=== PATIENT | male | born 1965 | race Caucasian/White ===

== ENCOUNTER 2017-02-07 14:32 | Observation (INO) | payer OTHER ==
[2017-02-07] VITALS (15 sets, daily range): BP systolic 139–200; BP diastolic 71–92; PULSE 78–107; RESP 18–20; TEMP 97.8–99; O2SAT 96–100
[~2017-02-07 14:32] MED LIST: NIFE30TA2 PO
[2017-02-07] MEDS ORDERED: ALPR.5 PO (15:08)
[2017-02-07] MEDS ORDERED: HYDR25TA5 PO (15:08)
[2017-02-07] MEDS ORDERED: ASPI325T PO (15:08)
[2017-02-07] MEDS ORDERED: NIFE30TA61 PO (15:08)
[2017-02-07] MEDS ORDERED: SODIUM CHLOR 0.9% 1000 ML INJ 1,000 ML IV ONE (15:15)
[2017-02-07] MEDS ORDERED: SODIUM CHLORIDE 0.9% FLUSH 10 ML FLUSH IVF PRN (15:15)
[2017-02-07 15:30] LABS: AUTOMATED NEUTROPHIL # 4.7 TH/MM3 (1.8-7.7); BASOPHIL # 0.1 TH/MM3 (0-0.2); BASOPHIL % 1.2 % (0.0-2.0); EOSINOPHIL # 0.2 TH/MM3 (0-0.4); EOSINOPHIL % 2.2 % (0.0-4.0); HEMATOCRIT 41.8 % (39.0-51.0); LYMPHOCYTE # 1.3 TH/MM3 (1.0-4.8); MEAN CELL VOLUME 94.5 FL (80.0-100.0); MEAN CORPUSCULAR HGB CONC 34.9 % (32.0-36.0); MONO % 8.4 % (0.0-8.0); NEUT % 69.2 % (16.0-70.0); PLATELET COUNT 93 TH/MM3 (150-450); RED BLOOD COUNT 4.43 MIL/MM3 (4.50-5.90); RED CELL DISTRIBUTION WIDTH 12.4 % (11.6-17.2); WHITE BLOOD COUNT 6.9 TH/MM3 (4.0-11.0)
--- NOTE | 2017-02-07 15:32 | PD ---
HPI Chief Complaint: Chest Pain Time Seen by Provider: 14:56 Travel History International Travel<30 days: No Contact w/Intl Traveler<30days: No Traveled to known affect area: No History of Present Illness HPI Patient is a 51 year old male with history of diabetes, hypertension, anxiety, alcohol abuse, cocaine abuse who presents to the ER with multiple complaints. Patient reports that starting yesterday, he was not feeling well. Reports that he was feeling tired, shaky, reports that he was feeling nauseous and had an episode of emesis yesterday. Patient reports that he began to have left sided chest pain which rate and his left arm yesterday while at work which is intermittent in nature. Patient reports that the chest pain feels a "tightness " to his chest. Denies history of [place], ACS in the past. Patient does admit to using cocaine a few days ago, reports that he snorted this and uses this intermittently. Patient also reports that he drinks about 5-6 shots of alcohol per day, he did have a few shots prior to coming to the emergency room as he was feeling anxious. Patient reports overall discomfort. Reports that he is scheduled to see Dr. Dunlap is a local flatbed driver on February 13 for his first visit as his PCP Dr. Murray told him that he had an abnormal cardiac echo. medication list: Nifedipine 30 mg, aspirin 325 mg, Xanax 0.5 mg, HCTZ 25 mg PFSH Past Medical History Cancer: No Cardiovascular Problems: No Diabetes: Yes Endocrine: No GERD: Yes Genitourinary: No Hepatitis: No Hiatal Hernia: No Hypertension: Yes Immune Disorder: No Medical other: Yes ("leaky valve") Musculoskeletal: No Neurologic: No Psychiatric: No Reproductive: No Respiratory: No Immunizations Current: No Thyroid Disease: No Influenza Vaccination: No Past Surgical History AICD: Yes Joint Replacement: No Pacemaker: No Tonsillectomy: Yes Family History Family Myocardial Infarction: No Social History Alcohol Use: Yes (2-6 DAily) Tobacco Use: Yes (2PPD) Substance Use: No Allergies-Medications (Allergen,Severity, Reaction): Coded Allergies: No Known Allergies (Verified , 02/07/17) Reported Meds & Prescriptions Reported Meds & Active Scripts Active Reported Aspirin 325 Mg Tab 325 Mg PO DAILY Hydrochlorothiazide 25 Mg Tab 25 Mg PO DAILY Xanax (Alprazolam) 0.5 Mg Tab 0.5 Mg PO HS PRN Nifedipine ER 24 HR (Nifedipine) 30 Mg Tab 30 Mg PO HS Review of Systems General / Constitutional: No: Fever Eyes: No: Visual changes HENT: No: Headaches Cardiovascular: Positive: Chest Pain or Discomfort, Palpitations Respiratory: No: Shortness of Breath Gastrointestinal: Positive: Nausea, Vomiting, Abdominal Pain Genitourinary: No: Dysuria Musculoskeletal: No: Pain Skin: No Rash Neurologic: No: Weakness Psychiatric: No: Depression Endocrine: No: Polydipsia Hematologic/Lymphatic: No: Easy Bruising Physical Exam Narrative GENERAL: Mild distress SKIN: Focused skin assessment warm/dry. HEAD: Atraumatic. Normocephalic. EYES: Pupils equal and round. No scleral icterus. No injection or drainage. ENT: No nasal bleeding or discharge. Mucous membranes pink and moist. NECK: Trachea midline. No JVD. CARDIOVASCULAR: Regular rate and rhythm. No murmur appreciated. RESPIRATORY: No accessory muscle use. Clear to auscultation. Breath sounds equal bilaterally. GASTROINTESTINAL: Abdomen soft, non-tender, nondistended. Hepatic and splenic margins not palpable. MUSCULOSKELETAL: No obvious deformities. No clubbing. No cyanosis. No edema. NEUROLOGICAL: Awake and alert. No obvious cranial nerve deficits. Motor grossly within normal limits. Normal speech. PSYCHIATRIC: Appropriate mood and affect; insight and judgment normal. Data Data Last Documented VS Vital Signs Date Time Temp Pulse Resp B/P (MAP) Pulse Ox O2 Delivery O2 Flow Rate FiO2 02/07/17 15:45 89 20 190/84 (119) 97 Room Air 02/07/17 14:37 99.0 Orders Orders Electrocardiogram (02/07/17 ) B-Type Natriuretic Peptide (02/07/17 15:08) Ckmb (Isoenzyme) Profile (02/07/17 15:08) Complete Blood Count With Diff (02/07/17 15:08) Comprehensive Metabolic Panel (02/07/17 15:08) Magnesium (Mg) (02/07/17 15:08) Prothrombin Time / Inr (Pt) (02/07/17 15:08) Act Partial Throm Time (Ptt) (02/07/17 15:08) Troponin I (02/07/17 15:08) Lipase (02/07/17 15:08) Chest, Single Ap (02/07/17 15:08) Ecg Monitoring (02/07/17 15:08) Iv Access Insert/Monitor (02/07/17 15:08) Oximetry (02/07/17 15:08) Sodium Chloride 0.9% Flush (Ns Flush) (02/07/17 15:15) Drug Screen, Random Urine (02/07/17 15:08) Alcohol (Ethanol) (02/07/17 15:08) Sodium Chlor 0.9% 1000 Ml Inj (Ns 1000 M (02/07/17 15:15) Electrocardiogram (02/07/17 15:39) Hydralazine Inj (Apresoline Inj) (02/07/17 16:00) CKMB (02/07/17 15:20) CKMB% (02/07/17 15:20) Potassium Chlor 20 Meq Premix (Kcl 20 Me (02/07/17 16:15) Nitroglycerin Sl (Nitrostat Sl) (02/07/17 17:00) Consult Cardiology (02/07/17 ) Labs Laboratory Tests Test 02/07/17 15:20 02/07/17 16:30 White Blood Count 6.9 TH/MM3 Red Blood Count 4.43 MIL/MM3 Hemoglobin 14.6 GM/DL Hematocrit 41.8 % Mean Corpuscular Volume 94.5 FL Mean Corpuscular Hemoglobin 33.0 PG Mean Corpuscular Hemoglobin Concent 34.9 % Red Cell Distribution Width 12.4 % Platelet Count 93 TH/MM3 Mean Platelet Volume 8.5 FL Neutrophils (%) (Auto) 69.2 % Lymphocytes (%) (Auto) 19.0 % Monocytes (%) (Auto) 8.4 % Eosinophils (%) (Auto) 2.2 % Basophils (%) (Auto) 1.2 % Neutrophils # (Auto) 4.7 TH/MM3 Lymphocytes # (Auto) 1.3 TH/MM3 Monocytes # (Auto) 0.6 TH/MM3 Eosinophils # (Auto) 0.2 TH/MM3 Basophils # (Auto) 0.1 TH/MM3 CBC Comment AUTO DIFF Prothrombin Time 15.2 SEC Prothromb Time International Ratio 1.4 RATIO Activated Partial Thromboplast Time 32.0 SEC Blood Urea Nitrogen 5 MG/DL Creatinine 0.72 MG/DL Random Glucose 95 MG/DL Total Protein 9.3 GM/DL Albumin 3.8 GM/DL Calcium Level 9.1 MG/DL Magnesium Level 2.1 MG/DL Alkaline Phosphatase 99 U/L Aspartate Amino Transf (AST/SGOT) 140 U/L Alanine Aminotransferase (ALT/SGPT) 55 U/L Total Bilirubin 1.3 MG/DL Sodium Level 136 MEQ/L Potassium Level 3.0 MEQ/L Chloride Level 97 MEQ/L Carbon Dioxide Level 28.5 MEQ/L Anion Gap 11 MEQ/L Estimat Glomerular Filtration Rate 116 ML/MIN Total Creatine Kinase 213 U/L Creatine Kinase MB 3.2 NG/ML Troponin I 0.04 NG/ML B-Type Natriuretic Peptide 116 PG/ML Lipase 166 U/L Ethyl Alcohol Level 20 MG/DL [facility] [place] Medical Decision Making Medical Screen Exam Complete: Yes Emergency Medical Condition: Yes Medical Record Reviewed: Yes Interpretation(s) EKG at 1449: NSR at 89bpm, qt/qtc: 438/484, lbbb, lad Vital Signs Date Time Temp Pulse Resp B/P (MAP) Pulse Ox O2 Delivery O2 Flow Rate FiO2 02/07/17 15:01 Room Air 02/07/17 14:37 99.0 102 20 139/89 (106) 98 Differential Diagnosis Differential includes ACS, arrhythmia, drug abuse, alcohol abuse, alcohol withdrawal, electrolyte abnormality, pneumothorax, PE, gastritis, gastroenteritis Narrative Course Patient is a 51-year-old male who presents to emergency room with multiple complaints. Patient reports that he has been having nausea vomiting and abdominal discomfort since yesterday. He reports resolution of his nausea vomiting at this time, reports abdominal cramping. Patient reports concerns as today he began to have left sided chest pain. Reports that he felt a "pressure" to his left chest radiating down his left arm. Patient admits to using cocaine a few days ago and drinking alcohol every day, last drink was prior to arrival to ER. Chest pain has resolved upon arrival to emergency room. Patient was placed on a diagnostic cardiac sonographer, EKG was obtained. Laboratory including cardiac enzymes ordered. Will give IV fluids and antiemetics. Repeat EKG at 1549: NSR at 78bpm, qt/qtc: 484/517, t wave inversion V1-V5 which is changed from original presenting ekg at 1449 Patient reported that he took his full dose of aspirin this morning Patient with "slight" chest pain at this time, call made to Dr. Dunlap Washer And Capper Machine Operator to review case. Case reviewed with Dr. Dunlap - request transfer to [facility] for workup, will hold on heparin gtt at this time as it is at bedside, he will reconsider starting him on heparin if he has positive troponins. Call made to [facility] for admission to [facility] Case reviewed with Dr. Hebert who accepts patient under name of Dr. Heredia Critical Care Narrative Aggregate critical care time was 30 minutes. Time to perform other separately billable procedures was not included in the critical care time. My time did not include minutes spent treating any other patients simultaneously or on activities that did not directly contribute to the patient's treatment. The services I provided to this patient were to treat and/or prevent clinically significant deterioration that could result in: , decompensation, deterioration I provided critical care services requiring my management, as noted below: Chart data review, documentation time, medication orders and management, vital sign assessments/reviewing monitor data, ordering and reviewing lab tests, ordering and interpreting/reviewing x-rays and diagnostic studies, care of the patient and discussion of the patient with the admitting physicians. Diagnosis Primary Impression: Unstable angina Additional Impression: Cocaine abuse Admitting Information Admitting Physician Requests: Admit Keri Landa DO Feb 07, 2017 15:32
[2017-02-07 15:48] LABS: CHLORIDE 97 MEQ/L (98-107); SODIUM (NA) 136 MEQ/L (136-145)
--- NOTE | 2017-02-07 15:49 | RADRPT ---
EXAM DATE/TIME: 02/07/2017 15:28 [place] COMPARISON: No previous studies available for comparison. INDICATIONS : Chest pain, vomiting, and shakiness while at work today. MEDICAL HISTORY : None. SURGICAL HISTORY : None. ENCOUNTER: Initial ACUITY: 1 day PAIN SCORE: 4/10 LOCATION: Bilateral chest FINDINGS: A single view of the chest demonstrates the lungs to be symmetrically aerated without evidence of mas s, infiltrate or effusion. The cardiomediastinal contours are unremarkable. Osseous structures are intact. CONCLUSION: Normal examination. Duglas Kaur MD on February 07, 2017 at 15:48 Board Certified Radiologist. This report was verified electronically.
[2017-02-07 15:52] LABS: INTERNATIONAL NORMALIZED RATIO 1.4 RATIO; PROTHROMBIN TIME - PATIENT 15.2 SEC (9.8-11.6)
[2017-02-07 15:54] LABS: ANION GAP 11 MEQ/L (5-15); BICARBONATE 28.5 MEQ/L (21.0-32.0); MAGNESIUM 2.1 MG/DL (1.5-2.5)
[2017-02-07 15:56] LABS: ALT (GPT) 55 U/L (12-78)
[2017-02-07 15:57] LABS: AST (GOT) 140 U/L (15-37); BLOOD UREA NITROGEN 5 MG/DL (7-18); GLOMERULAR FILTRATION RATE 116 ML/MIN (>89); HEMO FLAGS AUTO DIFF
[2017-02-07 15:58] LABS: TOTAL BILIRUBIN ADULT 1.3 MG/DL (0.2-1.0)
[2017-02-07 15:59] LABS: ALCOHOL 20 MG/DL (0-5); ALKALINE PHOSPHATASE 99 U/L (45-117); CREATINE KINASE 213 U/L (39-308)
[2017-02-07] MEDS ORDERED: hydrALAZINE HCL 20 MG/ML VIAL IV PUSH ONE (16:00)
[2017-02-07 16:12] LABS: CKMB 3.2 NG/ML (0.5-3.6)
[2017-02-07] MEDS ORDERED: HEPARIN-D5W 25,000 U/250 ML 250 ML IV PRN (16:15)
[2017-02-07] MEDS: NITROGLYCERIN 0.4 MG SL 25 TABS/BTL SL SCH ×3 (16:58→17:10)
[2017-02-07] MEDS: POTASSIUM CHLOR 20 MEQ PREMIX 100 ML IV SCH ×2 (16:59→18:58)
[2017-02-07] MEDS ORDERED: IOHEXOL 350 MG/ML 100 ML BTL (for Cath Lab) OTHER ONE (17:10)
[2017-02-07 17:21] LABS: PLATELET ESTIMATE SMEAR LOW (NORMAL); SCAN/DIFF AUTO DIFF CONFIRMED
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
[2017-02-07] MEDS ORDERED: SODIUM CHLORIDE 0.9% FLUSH 10 ML FLUSH IV FLUSH PRN (19:45)
[2017-02-07] MEDS ORDERED: LORazepam 2 MG/ML VIAL IV PUSH ONE (19:45)
[2017-02-07] MEDS ORDERED: ACETAMINOPHEN 500 MG CPLT PO PRN (19:45)
[2017-02-07] MEDS ORDERED: ALPRAZolam 0.25 MG TAB PO PRN (19:45)
[2017-02-07] MEDS: SODIUM CHLORIDE 0.9% FLUSH 10 ML FLUSH IV FLUSH SCH (21:12)
[2017-02-07] MEDS ORDERED: ENOXAPARIN SODIUM 100 MG/ML SYRINGE SQ ONE (21:45)
[2017-02-07] MEDS ORDERED: ENOXAPARIN SODIUM 40 MG/0.4 ML SYRINGE SQ ONE (21:45)
[2017-02-07] MEDS ORDERED: FLUMAZENIL 0.5 MG/5 ML VIAL IV PUSH PRN (21:45)
[2017-02-07] MEDS ORDERED: LORazepam 2 MG TAB PO PRN (21:45)
[2017-02-07] MEDS ORDERED: LORazepam 2 MG/ML VIAL IV PUSH PRN ×4 (21:45)
[2017-02-07] MEDS ORDERED: LORazepam 1 MG TAB PO PRN (21:45)
[2017-02-07] MEDS ORDERED: cloNIDine HCL 0.1 MG TAB PO PRN (22:00)
[2017-02-08] VITALS: BP 181/87; PULSE 82; PULSE 88; RESP 20; TEMP 98.5; O2SAT 98
[2017-02-08 01:00] VITALS: BP 129/76; PULSE 94; PULSE 95; RESP 20; O2SAT 97
[2017-02-08 02:00] VITALS: BP 118/65; PULSE 76; PULSE 78; RESP 20; O2SAT 98
[2017-02-08 03:00] VITALS: BP 148/68; PULSE 76; PULSE 77; RESP 20; O2SAT 97
[2017-02-08 04:00] VITALS: BP 125/77; PULSE 79; RESP 20; TEMP 98.1; O2SAT 99
[2017-02-08 05:00] VITALS: PULSE 76
[2017-02-08] MEDS: NITROGLYCERIN 2% OINT 1 GM PACKET TOP SCH ×2 (05:31)
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
[2017-02-08] MEDS ORDERED: BUPRENORPHINE/NALOXONE 8 MG/2 MG SUBLINGUAL TAB SL SCH (09:00)
[2017-02-08] MEDS ORDERED: ASPIRIN 325 MG TAB PO SCH (09:00)
[2017-02-08] MEDS: SODIUM CHLORIDE 0.9% FLUSH 10 ML FLUSH IV FLUSH SCH (09:56)
[2017-02-08] MEDS ORDERED: HEPARIN-NS/PF INJ 1,000 ML ONE (12:51)
[2017-02-08] MEDS ORDERED: MIDAZOLAM HCL 2 MG/2 ML VIAL ONE (12:52)
[2017-02-08] MEDS ORDERED: HEPARIN SODIUM - IV 10,000 UNITS/10 ML VIAL ONE (12:56)
[2017-02-08] MEDS ORDERED: BIVALIRUDIN 250 MG VIAL ONE (13:12)
--- NOTE | 2017-02-08 13:17 | EKG ---
Date Performed: 02/07/2017 Time Performed: 14:49:47 PTAGE: 51 years EKG: Sinus rhythm LEFT ATRIAL ENLARGEMENT MARKED LEFT AXIS DEVIATION LEFT BUNDLE BRANCH BLOCK ABNORMAL ECG Compared to PREVIOUS TRACING , left bundle branch block is new. PREVIOUS TRACING DOCTOR: Travis Gamboa Interpretating Date/Time 02/08/2017 13:16:41
--- NOTE | 2017-02-08 13:19 | EKG ---
Date Performed: 02/07/2017 Time Performed: 19:35:44 PTAGE: 51 years EKG: Sinus rhythm MARKED LEFT AXIS DEVIATION LEFT BUNDLE BRANCH BLOCK ABNORMAL ECG Compared to PREVIOUS TRACING , left bundle branch block has reappeared. PREVIOUS TRACIN02/07/2017 15.49 DOCTOR: Travis Gamboa Interpretating Date/Time 02/08/2017 13:18:19
--- NOTE | 2017-02-08 13:19 | EKG ---
Date Performed: 02/07/2017 Time Performed: 15:49:05 PTAGE: 51 years EKG: Normal Sinus rhythm Left axis deviation Left anterior T-wave abnormality Marked anterior T-wave abnormality Left bundle branch block is no longer present compared to the prior tracing and T-wave abnormality could be due t o cardiac memory or possible ischemia. ABNORMAL ECG PREVIOUS TRACING : 02/07/2017 14.49 DOCTOR: Travis Gamboa Interpretating Date/Time 02/08/2017 13:17:44
[2017-02-08] MEDS ORDERED: CLOPIDOGREL 300 MG TAB ONE (13:20)
[2017-02-08] MEDS ORDERED: SODIUM CHLOR 0.9% 1000 ML INJ 1,000 ML IV SCH (13:26)
[2017-02-08] MEDS ORDERED: BIVALIRUDIN INJ 250 MG in SODIUM CHLORIDE 0.9% INJ 50 ML IV SCH (13:26)
[2017-02-08] MEDS ORDERED: MORPHINE SULFATE 4 MG/ML INJ IV PUSH PRN (13:30)
[2017-02-08] MEDS ORDERED: MISC INFORMATION XX ONE (13:30)
[2017-02-08] MEDS ORDERED: METOPROLOL TARTRATE 25 MG TAB PO SCH (13:30)
[2017-02-08] MEDS ORDERED: LIDOCAINE 2% JELLY 30 ML TUBE TOP PRN (13:30)
[2017-02-08] MEDS ORDERED: BACITRACIN OINT 0.9 GM PKT TOP ONE (13:30)
--- NOTE | 2017-02-08 13:36 | CATHPROC ---
[facility] HIS Report Study Information Study Number Admission Scheduled Start Study Start [id number] Feb 07 2017 5:09PM 02/08/2017 Feb 08 2017 11:08AM [place] [facility] Cardiac Catheterization Admit Source Facility Department Other [facility] Physician and Clinical Staff Initial Duglas Allred Pole Truck Drivermelissa Islas RN, Deion Pole Truck DriverPaulino CookRN Recorder Christa Napoles,RT(R) (BS) Scrub Sharon BryantRT(R) Procedures Performed Procedure Location (Site) Vessel Name Coronary Angiograms LCA Left Coronary Coronary Angiograms RCA Right Coronary Drug Eluting Inflatio RCA Mid Right Coronary L Heart Cath Wire insertion Radial (right) Radial Art. Equipment Time Gun Repair Clerk Description Size Mfg Part Number Used/Scraped TRANSDUCER, TRUWAVE [id number] 12:49 [employer] * Used W/STOCKCOCK *[id number] *[id number] *[id number] *[id number] 12:49 Arkeo PACK, CCL CUSTOM * Used *[id number] 12:49 Arkeo SUPPORT, ARTERIAL ADULT 04135 *[id number] Used [id number] 12:49 PROSimity PACER PEN, SKIN DUAL W/ RULER * Used *[id number] STENT, 3.0 15 RESOLUTE [id number] 13:18 MEDTRONIC 3.0 15 Used INTEGRITY RX *[id number] 13:20 Ascletis 30 IGNACIO INDEFLATOR Used *[id number] BAND, RADIAL COMPRESSION TR [id number] 13:23 Ascletis 29CM Used LARGE 29 *[id number] SHEATH, FR6 RADIAL PRELUDE 12:49 Ascletis FR 6 [id number] Used EASE 11CM [id number] 12:49 Ascletis WIRE, EXCHANGE 260CM 3MMJ 260CM Used *[id number] 12:49 NYCOMED OMNIPAQUE, 350 MG, 150ML 150ML [id number] Used [id number] 12:49 [facility] BLANKET,WARM AIR CCL * Used *[id number] WIRE, RUNTHROUGH NS FLOPPY [id number] 13:12 TERPlandree MEDICAL 180CM Used .014 180CM *[id number] Equipment Model, Serial, Lot Number and Expiration Data Description Model Number Serial Number Lot Number Expiration Date STENT, 3.0 15 RESOLUTE [id number] 02-28-2018 INTEGRITY RX History: Current Medications Medication Dosage/Unit Route Frequency Last Date/Time Taken ASA LOVENOX History: Allergies Allergy Reaction No Known Allergies History: Risk Factors Family History of Hypertension Dyslipidemia Previous MT Previous Heart Failure Premature CAD Yes Yes Yes No No Prior Valve Prior PCI Prior CABG Surgery No No No Cerebrovascular Peripheral Artery Chronic Lung On Dialysis Diabetes Disease Disease Disease No No No No Yes History: Stress Tests Stress or Imaging Studies Performed No History: Other Current Smoker Method Packs a Day Years Used Pack Years Yes Cigarettes 2 30 60 Labs Hgb (g/dl) Hct (%) WBC (l/cumm) Platelets (thousands) 11.60-17.00 35.00-51.00 4.00-11.00 150.00-450.00 14.6 41.8 6.9 93 Glucose (mg/dl) BUN (mg/dl) Creatinine (mg/dl) BUN:Creatinine (1:x) 74.00-106.00 7.00-18.00 0.50-1.30 10.00-20.00 95 5 0.7 7.1 Na (meq/l) K (meq/l) 136.00-145.00 3.50-5.10 136 3 INR (PTT:PT) 0.90-1.10 1.4 Troponin I (ng/ml) CPK (u/l) CPK-MB (ng/ML) 0.02-0.05 26.00-308.00 0.50-3.60 0.05 141 3.2 Medication Medication Total Dose (Bolus/Oral) Medication Total Dosage/Unit 1% XYLOCAINE 1 mL ANGIOMAX BOLUS 14 mL FENTANYL 50 mcg HEPARIN 3000 units NTG (IC) 200 mcg PLAVIX 600 mg VERSED 1 mg Medications (Bolus/Oral) Medication Time Given Dosage/Unit Administered By Reason VERSED 02/08/2017 1:00:59 PM 1 mg Paulino Ballesteros 1 mg VERSED given in lab by Paulino Ballesteros RN in Left Antecubital via Peripheral IV. FENTANYL 02/08/2017 1:01:07 PM 50 mcg Paulino Ballesteros 50 mcg FENTANYL given in lab by Paulino Ballesteros RN in Left Antecubital via Peripheral IV. 1% XYLOCAINE 02/08/2017 1:01:17 PM 1 mL Duglas Calvert 1 mL 1% XYLOCAINE given in lab by Duglas Calvert in Right Radial via Subcutaneous. HEPARIN 02/08/2017 1:04:43 PM 3000 units Duglas Calvert 3000 units HEPARIN given in lab by Duglas Calvert in Left Antecubital via Peripheral IV. NTG (IC) 02/08/2017 1:05:55 PM 200 mcg Duglas Calvert 200 mcg NTG (IC) given in lab by Duglas Calvert in Right Radial via Intra-arterial. ANGIOMAX BOLUS 02/08/2017 1:14:13 PM 14 mL Paulino Ballesteros 14 mL ANGIOMAX BOLUS given in lab by Paulino Ballesteros RN in Left Antecubital via Peripheral IV. PLAVIX 02/08/2017 1:25:40 PM 600 mg Paulino Ballesteros 600 mg PLAVIX given in lab by Paulino Ballesteros RN via Oral. Medication (Drip) Medication Time Given Dosage/Unit Concentration/Unit Diluent (ml) Solution ANGIOMAX DRIP 02/08/2017 1:16:33 PM 1.751 mg/kg/hr 250 mg 50 NaCl .9 1.751 mg/kg/hr ANGIOMAX DRIP given in lab by Paulino Ballesteros RN in Left Antecubital via Peripheral IV. Pump/Drip Flow = 32 ml/hr using NaCl .9 with a concentration of 250 mg in 50 ml. IV Solutions 02/08/2017 12:50:11 PM 0 mL (IV) 500 NaCl .9 IV Solutions given in lab by Deion Islas RN in Left Antecubital via Peripheral IV. Pump/Drip Flow = 100 ml/hr using NaCl .9. Initial Case Assessment Cardiovascular HR Rhythm NIBP Chest Pain 79 irr 179/101 0 Edema Present Skin color Skin None Normal Warm Dry Circulatory - Right Pulses Dorsalis Pedis Femoral Radial 2 2 2 Scale (0,1,2,3,4,d) Scale (0,1,2,3,4,d) Neurological State Oriented to time-place- Alert Moves all extremities person Respiration - General Respiration Rate SpO2 (%) (B/min) 20 99 Chronological Log Time Study Chronological Log 12:49:57 Patient arrived via Bed. 12:49:58 Patient Name, D.O.B, / Armband Verified By R.N. 12:49:58 Consent signed by the physician and the patient and verified by the [facility] staff. 12:49:59 Pre-op and post- op instructions given; patient acknowledges understanding of instructions. 12:50:03 Allens test performed on the right radial and ulnar artery. 12:50:04 Presedation assessment performed by [facility] RN. 12:50:05 Patient has been NPO for Less than 6Hrs. 12:50:06 Skin Breakdown none per pt 12:50:07 Patient Warmer Placed on the Table. 12:50:10 A # 20 IV was noted in the Antecubital (left). Grade = 0 IV Solutions given in lab by Deion Islas RN in Left Antecubital via Peripheral IV. Pump/Drip F low = 100 ml/hr using 12:50:11 NaCl .9. 12:50:11 History and physical on the chart or being dictated. Assessment: Initial Case, HR=79 BPM, Rhythm=irr, ZNHG=424/101 mmhg, Chest Pain=0, Edema=None, Color=Normal, Skin = Warm, Dry 12:50:12 Right Pulses: Alexandru Ped=2, Femoral=2, Radial=2 Neurological: State=Alert, Ox3, AMIN Respiration: Resp=20 B/min, SpO2=99 % Vitals capture started with the following parameters, Patient=Adult, Interval=5 min, Initial Pr yyqawd=887 mmHg, 12:53:05 Deflation Rate=5 mmHg, Cuff placed on Right Arm 12:54:21 HR=79 bpm, BAJH=922/101 mmhg, SpO2=94.0 %, Resp=18 B/min, Pain=0, Derrick=10, Arriaga=2 12:54:25 Reference ECG taken 12:55:46 Right groin and right radial prepped with 2% chlorhexidine, and with a 3 min. waiting time. 12:58:49 HR=73 bpm, BWIT=787/84 mmhg, SpO2=95.0 %, Resp=12 B/min, Pain=0, Derrick=10, Arriaga=2 13:00:59 1 mg VERSED given in lab by Paulino Ballesteros RN in Left Antecubital via Peripheral IV. 13:01:07 50 mcg FENTANYL given in lab by Paulino Ballesteros RN in Left Antecubital via Peripheral IV. 13:01:17 1 mL 1% XYLOCAINE given in lab by Duglas Calvert in Right Radial via Subcutaneous. Time Out. Correct patient, correct procedure,correct physician, power injector not loaded with contrast with surgical 13:02:03 team present. Time Out Concurred by , individual staff in procedure 13:02:16 Case Start 13:03:15 Access site was right Radial Artery. A SHEATH, FR6 RADIAL PRELUDE EASE 11CM FR 6 was advanced into the Radial (right) using the Perc utaneous 13:03:25 technique. 13:03:46 HR=75 bpm, NWGG=935/82 mmhg, SpO2=95.0 %, Resp=12 B/min, Pain=0, Derrick=10, Arriaga=2 13:03:46 Pressure channel 1 zeroed. A JR 5.0 INFINITI CATHETER FR 6 was advanced over a wire. OMNIPAQUE, 350 MG, 150ML 150ML was us ed for 13:04:33 injections. 13:04:43 3000 units HEPARIN given in lab by Duglas Calvert in Left Antecubital via Peripheral IV. Recorded Pressure: LV, HR=78, Condition=Condition 1 13:05:28 (Left Ventricle) LV 146/3/15 Recorded Pressure: LV, Ao, HR=78, Condition=Condition 1 13:05:33 (Left Ventricle) LV 148/2/18, (Aorta) Ao 159/78/108 13:05:55 200 mcg NTG (IC) given in lab by Duglas Calvert in Right Radial via Intra-arterial. Recorded Pressure: Ao, HR=76, Condition=Condition 1 13:07:09 (Aorta) Ao 154/76/106 13:07:46 The RCA was injected and visualized at various angles. OMNIPAQUE, 350 MG, 150ML 150ML used . After removing the current catheter a JL 3.5 INFINITI CATHETER FR 6 was advanced over a WIRE, E XCHANGE 260CM 13:08:29 3MMJ 260CM. 13:08:43 HR=82 bpm, PZAI=583/81 mmhg, SpO2=94.0 %, Resp=13 B/min, Pain=0, Derrick=10, Arriaga=2 13:10:00 The LCA was injected and visualized at various angles. OMNIPAQUE, 350 MG, 150ML 150ML used . After removing the current catheter a JR 5.0 GUIDE CATHETER FR 6 was advanced over a WIRE, JUAN HROUGH NS 13:12:19 FLOPPY .014 180CM 180CM. 13:13:46 IO=420 bpm, PGHF=501/80 mmhg, SpO2=93.0 %, Resp=16 B/min, Pain=0, Derrick=10, Arriaga=2 13:14:13 14 mL ANGIOMAX BOLUS given in lab by Paulino Ballesteros RN in Left Antecubital via Peripheral I V. 13:14:58 A WIRE, RUNTHROUGH NS FLOPPY .014 180CM 180CM was inserted via Radial (right). 1.751 mg/kg/hr ANGIOMAX DRIP given in lab by Paulino Ballesteros RN in Left Antecubital via Peripher al IV. Pump/Drip Flow 13:16:33 = 32 ml/hr using NaCl .9 with a concentration of 250 mg in 50 ml. A STENT, 3.0 15 RESOLUTE INTEGRITY RX 3.0 15 was advanced through a JR 5.0 GUIDE CATHETER FR 6 over a WIRE, 13:17:31 RUNTHROUGH NS FLOPPY .014 180CM 180CM. 13:18:45 HR=87 bpm, SFKX=749/93 mmhg, SpO2=94.0 %, Resp=14 B/min, Pain=0, Derrick=10, Arriaga=2 A STENT, 3.0 15 RESOLUTE INTEGRITY RX 3.0 15 was deployed using a 30 IGNACIO INDEFLATOR at 14 atmos pheres for 13:19:58 10 seconds in the RCA Mid. A STENT, 3.0 15 RESOLUTE INTEGRITY RX 3.0 15 was deployed using a 30 IGNACIO INDEFLATOR at 6 atmosp heres for 10 13:20:29 seconds in the RCA Mid. 13:20:47 Delivery device removed 13:21:06 Catheter was removed 13:21:10 Wire removed 13:21:14 Case End 13:23:46 HR=92 bpm, WQFT=911/101 mmhg, SpO2=95.0 %, Resp=26 B/min, Pain=0, Derrick=10, Arriaga=2 13:25:40 600 mg PLAVIX given in lab by Paulino Ballesteros, RN via Oral. 13:26:18 Called [facility] spoke to Krissy. Radial Compression Device Used. 13 mLs of air placed in BAND, RADIAL COMPRESSION TR LARGE 29 29 CM. Affected 13:27:26 hand 98 % O2 saturation. 13:27:49 No case complications noted. 13:27:50 Cine recording checked. 13:27:53 Bedside Report will be given. 13:27:54 Implantable Device card placed in patient's chart. 13:27:55 Contrast Scanned 13:27:58 A Left Heart Cath was performed. 13:28:30 Vitals capture stopped. 13:32:20 Patient moved to stretcher End Study - Contrast Media Used In Study Contrast Total Opened (mL) Total Used (mL) Total Wasted (mL) Hypaque 76 100 100 0 End Study - Maximum Contrast Load Max Contrast Load (mL) 652.9 End Study - Radiation Exposure Fluoro Time (minutes) 6.0 End Study - Sheaths Sheaths Pulled By Sheath Hold Time (min) Sharon Bryant End Study - Patient Disposition Complications Transferred To Interventional Outcome No Telemetry Bed successful
--- NOTE | 2017-02-08 13:50 | EKG ---
Date Performed: 02/08/2017 Time Performed: 01:21:58 PTAGE: 51 years EKG: Sinus rhythm Possible left atrial abnormality Left axis deviation Left bundle branch block Abnormal ECG Compared to prior electrocardiogram, rate has increased PREVIOUS TRACING : 02/07/2017 19.35 DOCTOR: Lazaro Marie Interpretating Date/Time 02/08/2017 13:49:44
--- NOTE | 2017-02-08 14:12 | HHI.PR ---
Subjective Remarks Patient reports feeling much better asking to go home denies chest pain Objective Vitals Vital Signs Date Time Temp Pulse Resp B/P (MAP) Pulse Ox O2 Delivery O2 Flow Rate FiO2 02/08/17 05:00 76 02/08/17 04:00 98.1 79 20 125/77 (93) 99 02/08/17 03:00 76 02/08/17 03:00 77 20 148/68 (94) 97 02/08/17 02:00 76 02/08/17 02:00 78 20 118/65 (82) 98 02/08/17 01:00 95 20 129/76 (93) 97 02/08/17 01:00 94 02/08/17 00:00 98.5 88 20 181/87 (118) 98 02/08/17 00:00 82 02/07/17 23:00 78 20 170/87 (114) 100 02/07/17 23:00 82 02/07/17 22:05 97.8 97 20 188/92 (124) 97 02/07/17 22:05 97.8 97 20 188/92 (124) 97 02/07/17 22:05 91 02/07/17 21:33 87 18 170/80 (110) 96 Room Air 02/07/17 20:05 90 18 175/76 (109) 99 Room Air 02/07/17 19:23 87 18 182/78 (112) 100 Room Air 02/07/17 19:00 81 18 165/76 (105) 98 Room Air 02/07/17 18:00 88 18 167/78 (107) 98 Room Air 02/07/17 17:18 98 20 164/77 (106) 99 Room Air 02/07/17 17:10 Room Air 02/07/17 17:07 107 20 176/71 (106) 99 Room Air 02/07/17 17:04 95 20 191/91 (124) 96 Room Air 02/07/17 17:03 18 02/07/17 16:35 103 20 192/80 (117) 99 Room Air 02/07/17 15:45 89 20 190/84 (119) 97 Room Air 02/07/17 15:35 Room Air 02/07/17 15:30 98 20 182/91 (121) 02/07/17 15:01 Room Air 02/07/17 15:00 105 20 200/86 (124) 98 Room Air 02/07/17 14:37 99.0 102 20 139/89 (106) 98 Result Diagram: 02/07/17 1520 02/07/17 1520 Other Results Laboratory Tests Test 02/07/17 15:20 02/07/17 16:30 02/07/17 21:02 02/08/17 01:20 White Blood Count 6.9 TH/MM3 Red Blood Count 4.43 MIL/MM3 Hemoglobin 14.6 GM/DL Hematocrit 41.8 % Mean Corpuscular Volume 94.5 FL Mean Corpuscular Hemoglobin 33.0 PG Mean Corpuscular Hemoglobin Concent 34.9 % Red Cell Distribution Width 12.4 % Platelet Count 93 TH/MM3 Mean Platelet Volume 8.5 FL Neutrophils (%) (Auto) 69.2 % Lymphocytes (%) (Auto) 19.0 % Monocytes (%) (Auto) 8.4 % Eosinophils (%) (Auto) 2.2 % Basophils (%) (Auto) 1.2 % Neutrophils # (Auto) 4.7 TH/MM3 Lymphocytes # (Auto) 1.3 TH/MM3 Monocytes # (Auto) 0.6 TH/MM3 Eosinophils # (Auto) 0.2 TH/MM3 Basophils # (Auto) 0.1 TH/MM3 CBC Comment AUTO DIFF Differential Comment AUTO DIFF CONFIRMED Platelet Estimate LOW Prothrombin Time 15.2 SEC Prothromb Time International Ratio 1.4 RATIO Activated Partial Thromboplast Time 32.0 SEC Blood Urea Nitrogen 5 MG/DL Creatinine 0.72 MG/DL Random Glucose 95 MG/DL Total Protein 9.3 GM/DL Albumin 3.8 GM/DL Calcium Level 9.1 MG/DL Magnesium Level 2.1 MG/DL Alkaline Phosphatase 99 U/L Aspartate Amino Transf (AST/SGOT) 140 U/L Alanine Aminotransferase (ALT/SGPT) 55 U/L Total Bilirubin 1.3 MG/DL Sodium Level 136 MEQ/L Potassium Level 3.0 MEQ/L Chloride Level 97 MEQ/L Carbon Dioxide Level 28.5 MEQ/L Anion Gap 11 MEQ/L Estimat Glomerular Filtration Rate 116 ML/MIN Total Creatine Kinase 213 U/L 186 U/L 141 U/L Creatine Kinase MB 3.2 NG/ML Troponin I 0.04 NG/ML 0.04 NG/ML 0.05 NG/ML B-Type Natriuretic Peptide 116 PG/ML Lipase 166 U/L Ethyl Alcohol Level 20 MG/DL Urine Opiates Screen NEG Urine Barbiturates Screen NEG Urine Amphetamines Screen NEG Urine Benzodiazepines Screen NEG Urine Cocaine Screen POS Urine Cannabinoids Screen NEG Imaging Last 72 hours Impressions Chest X-Ray 02/07/17 1508 Signed Impressions: Service Date/Time: , February 07, 2017 15:28 - CONCLUSION: Normal examination. Duglas Kaur MD Objective Remarks GENERAL: This is a well-nourished, well-developed patient, in no apparent distress. CARDIOVASCULAR: Regular rate and rhythm RESPIRATORY: Clear to auscultation. Breath sounds equal bilaterally. No wheezes , rales, or rhonchi. GASTROINTESTINAL: Abdomen soft, non-tender, nondistended. No guarding. MUSCULOSKELETAL: Extremities without clubbing, cyanosis, or edema. No joint tenderness, effusion, or edema noted. No calf tenderness. Negative Homans sign bilaterally. NEUROLOGICAL: Awake and alert. No focal deficits noted. Motor and sensory grossly within normal limits. Five out of 5 muscle strength in all muscle groups. Normal speech. Procedures 02/08/17 cardiac cath radial with stent placed to RCA A/P Problem List: (1) Unstable angina ICD Codes: I20.0 - Unstable angina Status: Acute Plan: Patient is S/P cardiac cath with stent place to RCA (02/08/17) by Dr. Calvert Started on aspirin 81 mg daily, Plavix 75 mg PO daily, metoprolol 25 mg PO BID and statin (2) Cocaine abuse ICD Codes: F14.10 - Cocaine abuse, uncomplicated Status: Chronic Plan: strongly discouraged use. He understands risks. I specifically explained the coronary risks encouraged patient to follow up with [facility] mental health for substance abuse counseling and assistance after DC (3) Hypokalemia ICD Codes: E87.6 - Hypokalemia Status: Acute Plan: Replaced (4) Hypertension ICD Codes: I10 - Essential (primary) hypertension Status: Chronic Plan: resume home nifedipine add BB (5) Thrombocytopenia ICD Codes: D69.6 - Thrombocytopenia, unspecified Status: Chronic Plan: Similar to previous value of 112 in August of this year. No obvious active bleeding. Possibly associated with chronic alcohol use Continue to monitor. (6) Tobacco abuse ICD Codes: Z72.0 - Tobacco use Plan: see above (7) ETOH abuse ICD Codes: F10.10 - Alcohol abuse, uncomplicated Plan: see above Assessment and Plan Patient cleared for DC per Dr. Calvert cardiology Patient DC home in stable condition with instructions to follow up with PCP- Dr. Murray, Cardiology Dr. Calvert and mental health regarding substance abuse strongly encouraged patient to stop polysubstance abuse and notified [facility] complex case management to assist after DC Patient examined. Assessment and plan formulated with Leticia Mccartney PA-C. I agree with the above. Problem Qualifiers (1) Hypertension: Qualified Codes: I10 - Essential (primary) hypertension Leticia Mccartney Feb 08, 2017 14:12 Pierre Bassett DO Feb 11, 2017 15:02
[2017-02-08] MEDS ORDERED: ASPI325T PO (15:01)
[2017-02-08] MEDS ORDERED: ATOR40TA16 PO (15:01)
[2017-02-08] MEDS ORDERED: METO25TA3 PO ×2 (15:01→15:15)
[2017-02-08] MEDS ORDERED: PLAV75TA29 PO (15:01)
--- NOTE | 2017-02-08 17:50 | MA ---
cc: DUGLAS FONSECA MD DATE 02/08/2017 INDICATION Unstable angina. PROCEDURE PERFORMED 1. Fluoroscopy with interpretation. 2. Left heart catheterization. 3. Coronary angiography. 4. Percutaneous intervention with drug-eluting stent to the right coronary artery. METHOD The risks, benefits, alternatives discussed with the patient. The patient understood and consented. PROCEDURE The patient brought to the catheterization lab and placed on the catheterization table. Right wrist was prepped and draped in sterile fashion. Right wrist was anesthetized with 2% lidocaine. Right radial artery was cannulated. A 6-Kosovan 7 cm sheath was placed without difficulty. LEFT HEART CATHETERIZATION Intraventricular hemodynamics measured at 148/2 mmHg. CORONARY ANGIOGRAPHY 1. Left main coronary is angiographically normal. 2. Left anterior descending coronary has minor luminal irregularities, is a large caliber size vessel. 3. Left circumflex has minor luminal irregularities. In the proximal segment there is an obtuse marginal branch. There is a large ramus intermedius branch with minor irregularities just proximal to the first obtuse marginal branch which is actually fairly distal. There is a 50% stenosis present. There is a posterolateral branch present. 4. Right coronary is a dominant vessel, giving rise to a posterior descending branch. Mid right coronary has a 95% subtotal occlusion. PERCUTANEOUS INTERVENTION Right coronary selectively engaged, 6-Kosovan JR-5 guide catheter 0.014 inch 180 cm [employer] run-through wire was navigated on distal posterior descending branch. A 3.0 at 15 mm RX Resolute drug-eluting stent was advanced down the mid-right coronary and deployed 16 atmospheres. Repeat angiography showed TERRANCE-III flow. No residual stenosis. Wire was removed. Guide catheter removed. Angiomax was administered throughout the entire procedure to maintain appropriate anticoagulation. CONCLUSION Severe mid right coronary artery stenosis status post percutaneous intervention with drug-eluting stent. PLAN Will monitor the patient closely for any post procedural complications. Hopefully, this will translate well with symptomatic improvement. Will initiate an aggressive medical therapy. Anticipate discharge possibly tomorrow. Duglas Fonseca MD SM/EO /1:23 PM /5:34 PM
[2017-02-08] MEDS ORDERED: NIFEdipine 30 MG SUSTAINED RELEASE TAB PO SCH (21:00)
[2017-02-08] MEDS ORDERED: ATORVASTATIN 40 MG TAB PO SCH (21:00)
[2017-02-09] MEDS ORDERED: ASPIRIN 325 MG TAB PO SCH (09:00)
[2017-02-09] MEDS ORDERED: CLOPIDOGREL 75 MG TAB PO SCH (09:00)
== END 2017-02-08 17:00 | disposition home or self-care (01) ==
LOC: PHED 14:32 → INTOOBSV 17:09 → PHEDA 17:09 → HCIS 22:11
PROVIDERS: ADMIT Hospitalist; ATTEND Hospitalist
DX: I25.110 Atherosclerotic heart disease of native coronary artery with unstable angina pectoris (principal); I10 Essential (primary) hypertension; E78.5 Hyperlipidemia, unspecified; R73.09 Other abnormal glucose; F17.200 Nicotine dependence, unspecified, uncomplicated; F41.9 Anxiety disorder, unspecified; I44.7 Left bundle-branch block, unspecified; E87.6 Hypokalemia; F14.10 Cocaine abuse, uncomplicated; R60.9 Edema, unspecified; D69.6 Thrombocytopenia, unspecified
CPT/HCPCS: 71010; 80053; 80307; 82550; 82552; 83690; 83735; 83880; 84484; 85025; 85610; 85730; 92928; 93005; 93454; 96361; 96365; 96366; 96375; 96376; 99291; C1769; C1874; C1887; C1893; G0378; J0360; J0583; J1644; J1650; J2060; J2250; J3010; J3480; J7030; Q9967

== ENCOUNTER 2017-03-05 20:24 | Inpatient (IN) | payer OTHER ==
[~2017-03-05] VITALS: Ht 185.4 cm; Wt 92.7 kg
[~2017-03-05 20:24] MED LIST changes: +ALPR.5 PO; +ASPI325T PO; +ATOR40TA16 PO; +METO25TA3 PO; -NIFE30TA2 PO; +NIFE30TA61 PO; +PLAV75TA29 PO
[2017-03-05] MEDS ORDERED: IOHEXOL 350 MG/ML 10 ML VIAL (for RAD DIAG) IVCONTRAST ONE (20:25)
[2017-03-05 20:27] VITALS: BP 173/81; PULSE 77; RESP 18; TEMP 97.8; O2SAT 95
[2017-03-05 20:35] VITALS: BP 172/78; PULSE 79; RESP 18; TEMP 98.8; O2SAT 97
--- NOTE | 2017-03-05 20:48 | PD ---
HPI Chief Complaint: Respiratory Distress Time Seen by Provider: 20:39 Travel History International Travel<30 days: No Contact w/Intl Traveler<30days: No Traveled to known affect area: No History of Present Illness HPI The patient is a 51 year old -male who presents to the [facility] emergency department with a history of chest pain that he reports began again approximate 5 days ago. He reports the pain is coming and going. He reports that the pain is getting worse each time it recurs. The patient reports that he recently was admitted to the hospital and underwent cardiac catheterization on February 08 with a stent placement. The patient reports a history of alcohol abuse, tobacco abuse, and cocaine use. The patient last used cocaine 2 days ago. The patient reports that he did take his low-dose aspirin today as well as his Plavix. The patient incidentally also reports that he was experiencing lower extremity edema thought to be a side effect of nifedipine, therefore this was discontinued and the patient was placed on lisinopril. The patient unfortunately missed taking a week of this medication. He reports that he started back on a blood pressure medication, lisinopril 2 days ago. The patient reports that the pain is in the left side of his chest. He reports that the pain as a tightening sensation. He reports that the pain is associated with shortness of breath, left arm pain, diaphoresis, however no nausea or vomiting. I review systems otherwise, the patient denies any recent fevers, worsening cough or congestion, neck pain, abdominal pain, diarrhea, urinary symptoms, or neurologic symptoms. The patient reports that he does have some problems with constipation. He did move his bowels today. He denies having any blood in his stool or black or tarry stools. [facility] Past Medical History Narrative Medical The patient's past medical history is significant for cocaine use, tobacco use, alcohol abuse, hypertension, hyperlipidemia, coronary artery disease status post stent placement on February 06, 2017, history of anxiety disorder, history of global hypokinesis on echo done on January 22, 2017. Anxiety: Yes Depression: No Cancer: No Cardiovascular Problems: Yes High Cholesterol: Yes Diabetes: Yes Endocrine: Yes GERD: Yes Genitourinary: No Hepatitis: No Hiatal Hernia: No Hypertension: Yes Immune Disorder: No Musculoskeletal: No Neurologic: No Psychiatric: Yes Reproductive: No Respiratory: No Immunizations Current: No Thyroid Disease: No Past Surgical History Narrative Surgical The patient's past surgical history is significant for tonsil and adenoidectomy , coronary artery catheterization with stent placement February 08, 2017. AICD: No Arteriovenous Shunt: No Insulin Pump: No Joint Replacement: No Pacemaker: No Tonsillectomy: Yes Social History Alcohol Use: Yes (6-7 shots of liquor daily) Tobacco Use: Yes (one pack per day) Substance Use: Yes (cocaine sometimes, last 2 days ago) Allergies-Medications (Allergen,Severity, Reaction): Coded Allergies: No Known Allergies (Verified , 02/07/17) Reported Meds & Prescriptions Reported Meds & Active Scripts Active Metoprolol Tartrate 25 Mg Tab 25 Mg PO Q12HR Aspirin 325 Mg Tab 81 Mg PO DAILY Atorvastatin (Atorvastatin Calcium) 40 Mg Tab 40 Mg PO HS Plavix (Clopidogrel Bisulfate) 75 Mg Tab 75 Mg PO DAILY Reported Xanax (Alprazolam) 0.5 Mg Tab 0.5 Mg PO HS PRN Review of Systems Except as stated in HPI: all other systems reviewed are Neg General / Constitutional: No: Fever Eyes: No: Visual changes HENT: No: Headaches, Congestion Cardiovascular: Positive: Chest Pain or Discomfort, Diaphoresis, Dyspnea on exertion Respiratory: Positive: Shortness of Breath, No: Cough Gastrointestinal: Positive: Constipation, No: Nausea, Vomiting, Diarrhea, Abdominal Pain, Changes in Bowel Habits, Indigestion, Loss of Appetite Genitourinary: No: Dysuria Musculoskeletal: No: Pain Skin: No Rash Neurologic: No: Weakness, Focal Abnormalities, Change in Mentation, Slurred Speech, Sensory Disturbance Psychiatric: No: Depression Endocrine: No: Polydipsia Hematologic/Lymphatic: No: Easy Bruising Physical Exam Narrative General: The patient is a well-developed well-nourished male in no acute distress. Head and Neck exam: Head is normocephalic atraumatic. Eyes: EOMI, pupils are equal round and reactive to light. Nose: Midline septum with pink mucous membranes Mouth: Dentition unremarkable. Moist mucus membranes. Posterior oropharynx is not erythematous. No tonsillar hypertrophy. Uvula midline. Airway patent. Neck: No palpable lymphadenopathy. No nuchal rigidity. No thyromegaly. Cardiovascular: Regular rate and rhythm without murmurs, gallops, or rubs. No pulse deficit to the extremities on simultaneous auscultation and palpation of his radial artery.. Lungs: Clear to auscultation bilaterally. No wheezes, rhonchi, or rales. Abdomen: Soft, with tenderness on palpation that is mild on examination in the midepigastric and right upper quadrant of the abdomen with a palpable prominence in the midepigastric area which could be related to hepatomegaly, versus mass. No guarding, rebound, or rigidity. Normal bowel sounds are audible. No tenderness on palpation of McBurney's point. Negative Dejesus's sign. Extremities: No clubbing, cyanosis, or edema. 2+ pulses in all 4 extremities. No calf tenderness on palpation. Back: No costovertebral angle tenderness to palpation. Neurologic Exam: Grossly nonfocal. Skin Exam: No rash noted. Intact skin that is warm and dry. Data Data Last Documented VS Vital Signs Date Time Temp Pulse Resp B/P (MAP) Pulse Ox O2 Delivery O2 Flow Rate FiO2 03/05/17 21:32 73 17 132/60 (84) 96 Room Air 03/05/17 20:35 98.8 Orders Orders Complete Blood Count With Diff (03/05/17 20:38) Troponin I (03/05/17 20:38) Ckmb (Isoenzyme) Profile (03/05/17 20:38) Creatine Kinase (Cpk) (03/05/17 20:38) B-Type Natriuretic Peptide (03/05/17 20:38) Coag Profile (03/05/17 20:38) Electrocardiogram (03/05/17 ) Basic Metabolic Panel (Bmp) (03/05/17 20:38) Hepatic Functional Panel (03/05/17 20:40) Lipase (03/05/17 20:40) D-Dimer (03/05/17 20:40) Chest, Single Ap (03/05/17 20:40) Iv Access Insert/Monitor (03/05/17 20:40) Ecg Monitoring (03/05/17 20:40) Oximetry (03/05/17 20:40) Ct Abd/Pel W Iv Contrast(Rout) (03/05/17 20:55) CKMB (03/05/17 19:42) CKMB% (03/05/17 19:42) Iohexol 350 Inj (Omnipaque 350 Inj) (03/05/17 20:25) Admit Order (Ed Use Only) (03/05/17 22:32) Labs Laboratory Tests Test 03/05/17 19:42 03/05/17 20:15 03/05/17 20:48 White Blood Count 6.7 TH/MM3 Red Blood Count 4.19 MIL/MM3 Hemoglobin 13.9 GM/DL Hematocrit 40.2 % Mean Corpuscular Volume 96.0 FL Mean Corpuscular Hemoglobin 33.2 PG Mean Corpuscular Hemoglobin Concent 34.6 % Red Cell Distribution Width 12.7 % Platelet Count 83 TH/MM3 Mean Platelet Volume 9.0 FL Neutrophils (%) (Auto) 53.6 % Lymphocytes (%) (Auto) 27.8 % Monocytes (%) (Auto) 15.3 % Eosinophils (%) (Auto) 2.6 % Basophils (%) (Auto) 0.7 % Neutrophils # (Auto) 3.6 TH/MM3 Lymphocytes # (Auto) 1.9 TH/MM3 Monocytes # (Auto) 1.0 TH/MM3 Eosinophils # (Auto) 0.2 TH/MM3 Basophils # (Auto) 0.0 TH/MM3 CBC Comment AUTO DIFF Differential Total Cells Counted 100 Neutrophils % (Manual) 49 % Band Neutrophils % 2 % Lymphocytes % 21 % Monocytes % 17 % Eosinophils % 4 % Neutrophils # (Manual) 3.4 TH/MM3 Differential Comment FINAL DIFF MANUAL Atypical Lymphocytes 7 % Platelet Estimate LOW Platelet Morphology Comment NORMAL D-Dimer Quantitative (PE/DVT) 0.35 MG/L FEU Blood Urea Nitrogen 10 MG/DL Creatinine 0.67 MG/DL Random Glucose 120 MG/DL Calcium Level 8.8 MG/DL Sodium Level 135 MEQ/L Potassium Level 3.7 MEQ/L Chloride Level 99 MEQ/L Carbon Dioxide Level 25.3 MEQ/L Anion Gap 11 MEQ/L Estimat Glomerular Filtration Rate 126 ML/MIN Total Bilirubin 0.9 MG/DL Direct Bilirubin 0.3 MG/DL Indirect Bilirubin 0.6 MG/DL Aspartate Amino Transf (AST/SGOT) 105 U/L Alanine Aminotransferase (ALT/SGPT) 41 U/L Alkaline Phosphatase 84 U/L Total Creatine Kinase 256 U/L Creatine Kinase MB 4.9 NG/ML Troponin I LESS THAN 0.02 NG/ML Total Protein 8.8 GM/DL Albumin 3.8 GM/DL Lipase 78 U/L B-Type Natriuretic Peptide 298 PG/ML Prothrombin Time 14.0 SEC Prothromb Time International Ratio 1.3 RATIO Activated Partial Thromboplast Time 32.0 SEC MDM Medical Decision Making Medical Screen Exam Complete: Yes Emergency Medical Condition: Yes Medical Record Reviewed: Yes Interpretation(s) Last Impressions Abdomen/Pelvis CT 03/05/172054 Signed Impressions: Service Date/Time: Sunday, March 05, 2017 22:16 - CONCLUSION: 1. Diffuse prominent hepatosplenomegaly with heterogeneous liver parenchyma suggestive of hepatocellular disease.. 2. Multiple mildly prominent nonspecific para-aortic and retroperitoneal lymph nodes are seen in the abdomen. Neoplastic disease such as CLL/SLL is the primary consideration. Recommend a PET/CT to evaluate for focal hypermetabolic activity and extent of the disease.. 3. Multiple benign-appearing hepatic cysts. 1. Neri Mandel MD Chest X-Ray 03/05/172039 Signed Impressions: Service Date/Time: Sunday, March 05, 2017 20:52 - CONCLUSION: No acute disease. No significant change has occurred. Neri Mandel MD Differential Diagnosis Acute coronary syndrome, versus aortic dissection, versus abdominal aortic aneurysm, versus liver mass, versus hepatomegaly, versus STEMI, versus pancreatitis, versus pancreatic pseudocyst Narrative Course During the course of the patients emergency department visit, the patients history, examination, and differential diagnosis were reviewed with the patient. The patient had IV access obtained and blood work sent for analysis. The patient was placed on a medical detailist with oximetry and blood pressure monitoring. An ECG was done on arrival. The patient's ECG reveals a sinus rhythm heart rate is 78. No acute ST segment elevation or depression. T waves are inverted in V1. QRS duration is 109 ms, QTC 447 ms. The patient was initially provided 243 mg of aspirin by mouth. Nitroglycerin sublingual every 5 minutes 3 when necessary chest pain, nitroglycerin 1 inch the chest wall. The patients laboratory studies were reviewed and remarkable for a white count of 6.7, hemoglobin 13.9, platelets 83 with 15.3 monos, CMP is Edy for an AST of 105, direct bilirubin 0.3. EKG 56, troponin I less than 0.02, BNP 298, PT 14 , PTT 32, d-dimer 0.35 decreased the likelihood of pulmonary embolism in this patient with no other significant risk factors. Radiology studies were reviewed and remarkable for a chest x-ray that shows no acute cardiopulmonary disease. CT scan of the abdomen and pelvis reveals diffuse prominent hepatosplenomegaly with heterogeneous liver parenchyma suggestive of hepatocellular disease. Multiple mildly prominent nonspecific periaortic and retroperitoneal lymph nodes are seen in the abdomen. Neoplastic disease such as CLL/SLL is the primary consideration. The patients results were discussed with the patient, including the plan of care. I explained that further testing and/ or monitoring is indicated based on the patients history, examination, and/ or laboratory findings. Therefore, I recommended admission for additional evaluation. The patient expressed understanding and was agreeable with this plan. The patient was admitted to the hospital in stable condition and [facility] Physician Communication Physician Communication The patient's case was discussed with Dr. Paiz who did agree to admit the patient for further evaluation and treatment at this time. Diagnosis Primary Impression: Unstable angina Additional Impression: Retroperitoneal lymphadenopathy Admitting Information Admitting Physician Requests: Admit Flor Gamboa MD Mar 05, 2017 20:48
[2017-03-05 21:09] LABS: AUTOMATED NEUTROPHIL # 3.6 TH/MM3 (1.8-7.7); BASOPHIL % 0.7 % (0.0-2.0); EOSINOPHIL # 0.2 TH/MM3 (0-0.4); EOSINOPHIL % 2.6 % (0.0-4.0); HEMATOCRIT 40.2 % (39.0-51.0); LYMPH % 27.8 % (9.0-44.0); LYMPHOCYTE # 1.9 TH/MM3 (1.0-4.8); MEAN CORPUSCULAR HEMOGLOBIN 33.2 PG (27.0-34.0); MEAN CORPUSCULAR HGB CONC 34.6 % (32.0-36.0); MONO % 15.3 % (0.0-8.0); NEUT % 53.6 % (16.0-70.0); PLATELET COUNT 83 TH/MM3 (150-450); RED BLOOD COUNT 4.19 MIL/MM3 (4.50-5.90); RED CELL DISTRIBUTION WIDTH 12.7 % (11.6-17.2); WHITE BLOOD COUNT 6.7 TH/MM3 (4.0-11.0)
--- NOTE | 2017-03-05 21:14 | RADRPT ---
EXAM DATE/TIME: 03/05/2017 20:52 [facility] COMPARISON: CHEST SINGLE AP, February 07, 2017, 15:28. INDICATIONS : Short of breath. MEDICAL HISTORY : None. SURGICAL HISTORY : None. ENCOUNTER: Initial ACUITY: 1 day PAIN SCORE: 0/10 LOCATION: Bilateral chest FINDINGS: A single view of the chest demonstrates the lungs to be symmetrically aerated without evidence of mas s, infiltrate or effusion. The heart size is upper limits of normal but stable compared to the prior study.. Osseous structures are intact. CONCLUSION: No acute disease. No significant change has occurred. Neri Mandel MD on March 05, 2017 at 21:12 Board Certified Radiologist. This report was verified electronically.
[2017-03-05 21:16] LABS: HEMO FLAGS AUTO DIFF
[2017-03-05 21:20] VITALS: O2SAT 97
[2017-03-05 21:26] LABS: ANION GAP 11 MEQ/L (5-15); BICARBONATE 25.3 MEQ/L (21.0-32.0); BLOOD UREA NITROGEN 10 MG/DL (7-18); CHLORIDE 99 MEQ/L (98-107); GLOMERULAR FILTRATION RATE 126 ML/MIN (>89); POTASSIUM 3.7 MEQ/L (3.5-5.1); SODIUM (NA) 135 MEQ/L (136-145)
[2017-03-05 21:29] LABS: INDIRECT BILIRUBIN 0.6 MG/DL (0.0-0.8); TOTAL BILIRUBIN ADULT 0.9 MG/DL (0.2-1.0)
[2017-03-05 21:31] LABS: CREATINE KINASE 256 U/L (39-308)
[2017-03-05 21:32] VITALS: BP 132/60; PULSE 73; RESP 17; O2SAT 96
[2017-03-05 21:43] LABS: CKMB 4.9 NG/ML (0.5-3.6)
[2017-03-05 21:56] LABS: ATYPICAL LYMPHOCYTES 7 % (0-0); BANDS 2 % (0-6); EOSINOPHILS 4 % (0-4); NEUTROPHIL # MANUAL DIFF 3.4 TH/MM3 (1.8-7.7); POLYS (SEG NEUTROPHILS) 49 % (16-70); WBC DIFF SAMPLE 100
[2017-03-05 21:57] LABS: PLATELET ESTIMATE SMEAR LOW (NORMAL); PLATELET MORPHOLOGY NORMAL (NORMAL); SCAN/DIFF FINAL DIFF MANUAL
[2017-03-05 22:00] LABS: INTERNATIONAL NORMALIZED RATIO 1.3 RATIO
--- NOTE | 2017-03-05 22:34 | RADRPT ---
EXAM DATE/TIME: 03/05/2017 22:16 [facility] COMPARISON: No previous studies available for comparison. INDICATIONS : Right upper qaudrant pain. IV CONTRAST: 90 cc Omnipaque 350 (iohexol) IV ORAL CONTRAST: No oral contrast ingested. RADIATION DOSE: 13.94 CTDIvol (mGy) MEDICAL HISTORY : Cardiovascular disease. Hypertension. Diabetes mellitus type 2.GERD SURGICAL HISTORY : None. ENCOUNTER: Initial ACUITY: 1 day PAIN SCALE: 6/10 LOCATION: Right upper quadrant TECHNIQUE: Volumetric scanning of the abdomen and pelvis was performed. Using automated exposure control and ad justment of the mA and/or kV according to patient size, radiation dose was kept as low as reasonably achievable to obtain optimal diagnostic quality images. DICOM format image data is available electro nically for review and comparison. FINDINGS: LOWER LUNGS: The visualized lower lungs are clear. LIVER: There is diffuse enlargement of the liver measuring 25.5 cm. The liver is heterogeneous suggestive of hepatocellular disease.. Several small hepatic cysts are seen throughout the right lobe. The largest measures about 2 cm. No dilated biliary ducts. The gallbladder is grossly unremarkable. No evidence of ascites. SPLEEN: Diffuse enlargement of the spleen measuring 16.1 cm. No focal defects. PANCREAS: Within normal limits. KIDNEYS: Normal in size and shape. There is no mass, stone or hydronephrosis. ADRENAL GLANDS: Within normal limits. VASCULAR: There is no aortic aneurysm. BOWEL/MESENTERY: The stomach, small bowel, and colon demonstrate no acute abnormality. There is no free intraperitone al air or fluid. The appendix is unremarkable. No inflammatory changes. ABDOMINAL WALL: Within normal limits. RETROPERITONEUM: Multiple nonspecific mildly prominent para-aortic and retroperitoneal lymph nodes are demonstrated. T here are some para-aortic lymph nodes in the upper abdomen measuring 1.6 and 1.4 cm in diameter. Ther e is a 1.5 cm lymph node in the left para-aortic area at the level of the kidneys. A few smaller lymp h nodes in the para-aortic region are also seen in this location. The mildly prominent lymph nodes ar e traced down to the aortic bifurcation. BLADDER: No wall thickening or mass. REPRODUCTIVE: Within normal limits. INGUINAL: A few nonspecific bilateral inguinal lymph nodes are demonstrated. MUSCULOSKELETAL: Within normal limits for patient age. CONCLUSION: 1. Diffuse prominent hepatosplenomegaly with heterogeneous liver parenchyma suggestive of hepatocellu lar disease.. 2. Multiple mildly prominent nonspecific para-aortic and retroperitoneal lymph nodes are seen in the abdomen. Neoplastic disease such as CLL/SLL is the primary consideration. Recommend a PET/CT to evalu ate for focal hypermetabolic activity and extent of the disease.. 3. Multiple benign-appearing hepatic cysts. 1. Neri Mandel MD on March 05, 2017 at 22:24 Board Certified Radiologist. This report was verified electronically.
[2017-03-05] MEDS ORDERED: SENNOSIDES 8.6 MG TAB PO PRN (23:00)
[2017-03-05] MEDS ORDERED: ALPRAZolam 0.5 MG TAB PO PRN (23:00)
[2017-03-05] MEDS ORDERED: LORazepam 2 MG/ML VIAL IV PUSH PRN (23:00)
[2017-03-05] MEDS ORDERED: ONDANSETRON HCL 4 MG/2 ML VIAL IVP PRN (23:00)
[2017-03-05] MEDS ORDERED: BISACODYL 10 MG SUPP RECTAL PRN (23:00)
[2017-03-05] MEDS ORDERED: LACTULOSE SYRUP 20 GM/30 ML CUP PO PRN (23:00)
[2017-03-05] MEDS ORDERED: MAGNESIUM HYDROXIDE SUSP 30 ML CUP PO PRN (23:00)
[2017-03-05] MEDS ORDERED: NALOXONE HCL 0.4 MG/ML AMP IV PUSH PRN (23:00)
[2017-03-05] MEDS ORDERED: SODIUM CHLORIDE 0.9% FLUSH 10 ML FLUSH IV FLUSH PRN (23:00)
[2017-03-05 23:02] VITALS: O2SAT 96
--- NOTE | 2017-03-05 23:24 | HHI.HP ---
HPI Service [facility] Hospitalists Primary Care Physician Pedro Murray MD Admission Diagnosis CP R/O IN, h/o stent placement on 02/08/17 Chief Complaint: chest pain for several days Travel History International Travel<30 Days: No Contact w/Intl Traveler <30 Da: No Traveled to Known Affected Are: No History of Present Illness The patient is a 51 year old -male who presents to the [facility] emergency department with a history of chest pain that he reports began again approximate 5 days ago. He reports the pain is coming and going. He reports that the pain is getting worse each time it recurs. The patient reports that he recently was admitted to the hospital and underwent cardiac catheterization on February 08 with a stent placement. The patient reports a history of alcohol abuse, tobacco abuse, and cocaine use. The patient last used cocaine 2 days ago, continued to use Alcohol and smoked as he believed that since stent heart was good. The patient reports that he did take his low-dose aspirin today as well as his Plavix. The patient incidentally also reports that he was experiencing lower extremity edema thought to be a side effect of nifedipine, therefore this was discontinued and the patient was placed on lisinopril. The patient unfortunately missed taking a week of this medication. He reports that he started back on lisinopril 2 days ago. The patient reports that the pain is in the left side of his chest. He reports that the pain as a tightening sensation. He reports that the pain is associated with shortness of breath, left arm pain, diaphoresis, however no nausea or vomiting. The patient denies any recent fevers, worsening cough or congestion, neck pain, abdominal pain, diarrhea, urinary symptoms, or neurologic symptoms. The patient reports that he does have some problems with constipation. He did move his bowels today. He denies having any blood in his stool or black or tarry stools. In er received NTG paste and asa ekg showed no acute changes and enzymes were negative . Will admitt for unstable angina and consult cardiology,on exam had large palpable liver and had a CT scan Abdomen done showed hepatspleenomegaly but also retroperitoneal lymph nodes. Review of Systems Cardiovascular: COMPLAINS OF: Chest pain, Dyspnea on Exertion, Lower Extremity Edema Past Family Social History Past Medical History cad rca stent,hypertension,hyperlipidemia ?elevated glucose, Past Surgical History tonsil adenoid,stent Reported Medications subloxone,lisinopril 10 metoprolol 25 bid,asa 81 plavix 75,xanax hs lipitor 40 Allergies: Coded Allergies: No Known Allergies (Verified , 02/07/17) Social History smoker 1ppd,cocaine use last 2 days ago daily alcohol 6 shots daily Physical Exam Vital Signs Vital Signs Date Time Temp Pulse Resp B/P (MAP) Pulse Ox O2 Delivery O2 Flow Rate FiO2 03/05/17 23:02 96 03/05/17 21:32 73 17 132/60 (84) 96 Room Air 03/05/17 21:20 97 Room Air 03/05/17 20:35 98.8 79 18 172/78 (109) 97 03/05/17 20:27 97.8 77 18 173/81 (111) 95 Room Air Physical Exam GENERAL: This is a well-nourished, well-developed patient, in no apparent distress. SKIN: No rashes, ecchymoses or lesions. Cool and dry. HEAD: Atraumatic. Normocephalic. No temporal or scalp tenderness. EYES: Pupils equal round and reactive. Extraocular motions intact. No scleral icterus. No injection or drainage. ENT: Nose without bleeding, purulent drainage or septal hematoma. Throat without erythema, tonsillar hypertrophy or exudate. Uvula midline. Airway patent. NECK: Trachea midline. No JVD or lymphadenopathy. Supple, nontender, no meningeal signs. CARDIOVASCULAR: Regular rate and rhythm without murmurs, gallops, or rubs. RESPIRATORY: Clear to auscultation. Breath sounds equal bilaterally. No wheezes , rales, or rhonchi. GASTROINTESTINAL: Abdomen soft, non-tender, mild distended. Positive hepato- splenomegaly, . No guarding. MUSCULOSKELETAL: Extremities without clubbing mild, cyanosis, plus 1 edema. No joint tenderness, effusion, No calf tenderness. Negative Homans sign bilaterally. NEUROLOGICAL: Awake and alert. Cranial nerves II through XII intact. Motor and sensory grossly within normal limits. Five out of 5 muscle strength in all muscle groups. Normal speech. Laboratory Laboratory Tests Test 03/05/17 19:42 03/05/17 20:15 03/05/17 20:48 White Blood Count 6.7 Red Blood Count 4.19 Hemoglobin 13.9 Hematocrit 40.2 Mean Corpuscular Volume 96.0 Mean Corpuscular Hemoglobin 33.2 Mean Corpuscular Hemoglobin Concent 34.6 Red Cell Distribution Width 12.7 Platelet Count 83 Mean Platelet Volume 9.0 Neutrophils (%) (Auto) 53.6 Lymphocytes (%) (Auto) 27.8 Monocytes (%) (Auto) 15.3 Eosinophils (%) (Auto) 2.6 Basophils (%) (Auto) 0.7 Neutrophils # (Auto) 3.6 Lymphocytes # (Auto) 1.9 Monocytes # (Auto) 1.0 Eosinophils # (Auto) 0.2 Basophils # (Auto) 0.0 CBC Comment AUTO DIFF Differential Total Cells Counted 100 Neutrophils % (Manual) 49 Band Neutrophils % 2 Lymphocytes % 21 Monocytes % 17 Eosinophils % 4 Neutrophils # (Manual) 3.4 Differential Comment FINAL DIFF MANUAL Atypical Lymphocytes 7 Platelet Estimate LOW Platelet Morphology Comment NORMAL D-Dimer Quantitative (PE/DVT) 0.35 Blood Urea Nitrogen 10 Creatinine 0.67 Random Glucose 120 Calcium Level 8.8 Sodium Level 135 Potassium Level 3.7 Chloride Level 99 Carbon Dioxide Level 25.3 Anion Gap 11 Estimat Glomerular Filtration Rate 126 Total Bilirubin 0.9 Direct Bilirubin 0.3 Indirect Bilirubin 0.6 Aspartate Amino Transf (AST/SGOT) 105 Alanine Aminotransferase (ALT/SGPT) 41 Alkaline Phosphatase 84 Total Creatine Kinase 256 Creatine Kinase MB 4.9 Troponin I LESS THAN 0.02 Total Protein 8.8 Albumin 3.8 Lipase 78 B-Type Natriuretic Peptide 298 Prothrombin Time 14.0 Prothromb Time International Ratio 1.3 Activated Partial Thromboplast Time 32.0 Result Diagram: 03/05/17194103/05/171941 Imaging Last 24 hours Impressions Chest X-Ray 03/05/172039 Signed Impressions: Service Date/Time: Sunday, March 05, 2017 20:52 - CONCLUSION: No acute disease. No significant change has occurred. Neri Mandel MD Course in er received ntg paste and asa Caprini VTE Risk Assessment Caprini VTE Risk Assessment: Mod/High Risk (score >= 2) Caprini Risk Assessment Model Point Value = 1 Point Value = 2 Point Value = 3 Point Value = 5 Age 41-60 Minor surgery BMI > 25 kg/m2 Swollen legs Varicose veins or History of unexplained or recurrent spontaneous Oral contraceptives or hormone replacement Sepsis (< 1 month) Serious lung disease, including pneumonia (< 1 month) Abnormal pulmonary function Acute myocardial infarction Congestive heart failure (< 1 month) History of inflammatory bowel disease Medical patient at bed rest Age 61-74 Arthroscopic surgery Major open surgery (> 45 min) Laparoscopic surgery (> 45 min) Malignancy Confined to bed (> 72 hours) Immobilizing plaster cast Central venous access Age >= 75 History of VTE Family history of VTE Factor V Leiden Prothrombin [id number] Lupus anticoagulant Anticardiolipin antibodies Elevated serum homocysteine Heparin-induced thrombocytopenia Other congenital or acquired thrombophilia Stroke (< 1 month) Elective arthroplasty Hip, pelvis, or leg fracture Acute spinal cord injury (< 1 month) Prophylaxis Regimen Total Risk Factor Score Risk Level Prophylaxis Regimen 0-1 Low Early ambulation 2 Moderate Order ONE of the following: *Sequential Compression Device (SCD) *Heparin 5000 units SQ BID 3-4 Higher Order ONE of the following medications: *Heparin 5000 units SQ TID *Enoxaparin/Lovenox 40 mg SQ daily (WT < 150 kg, CrCl > 30 mL/min) *Enoxaparin/Lovenox 30 mg SQ daily (WT < 150 kg, CrCl > 10-29 mL/min) *Enoxaparin/Lovenox 30 mg SQ BID (WT < 150 kg, CrCl > 30 mL/min) AND/OR *Sequential Compression Device (SCD) 5 or more Highest Order ONE of the following medications: *Heparin 5000 units SQ TID (Preferred with Epidurals) *Enoxaparin/Lovenox 40 mg SQ daily (WT < 150 kg, CrCl > 30 mL/min) *Enoxaparin/Lovenox 30 mg SQ daily (WT < 150 kg, CrCl > 10-29 mL/min) *Enoxaparin/Lovenox 30 mg SQ BID (WT < 150 kg, CrCl > 30 mL/min) AND *Sequential Compression Device (SCD) Assessment and Plan Problem List: (1) Unstable angina ICD Codes: I20.0 - Unstable angina Status: Acute Plan: patient without pain currently will get enzymes ekg consult cardiology known to Dr. Enrike calabrese paste continue plavix asa (2) Abnormal CT of the abdomen ICD Codes: R93.5 - Abnormal findings on diagnostic imaging of other abdominal regions, including retroperitoneum Status: Acute Plan: CT shows lymph nodes once cardiac stable will need possible PET scan to determine if nodes hypermetabolic (3) Substance abuse ICD Codes: F19.10 - Other psychoactive substance abuse, uncomplicated Status: Chronic Plan: discussed with patient the need to seek help which has been discussed on previous admit will add lorazepam for anxiety no signs of DT at present (4) Tobacco abuse ICD Codes: Z72.0 - Tobacco use Plan: consider smoking patch (5) ETOH abuse ICD Codes: F10.10 - Alcohol abuse, uncomplicated Status: Chronic Plan: as above add lorazepam (6) Hypertension ICD Codes: I10 - Essential (primary) hypertension Status: Chronic Assessment and Plan further plan as case progresses note takes subloxone for opiate problem daily Code Status full Discussed Condition With patient and Physician Certification 2 Midnight Certification Type: Admission for Inpatient Services Order for Inpatient Services The services are ordered in accordance with Medicare regulations or non- Medicare payer requirements, as applicable. In the case of services not specified as inpatient-only, they are appropriately provided as inpatient services in accordance with the 2-midnight benchmark. Estimated LOS (days): 3 3 days is the estimated time the patient will need to remain in the hospital, assuming treatment plan goals are met and no additional complications. Post-Hospital Plan: Home Sukh Paiz MD Mar 05, 2017 23:24
[2017-03-05] MEDS ORDERED: MORPHINE SULFATE 2 MG/ML INJ IV PUSH PRN ×2 (23:30)
[2017-03-06 01:10] VITALS: BP 168/77; PULSE 77; RESP 18; TEMP 98.1; O2SAT 98
[2017-03-06 02:00] VITALS: PULSE 77
[2017-03-06 05:00] VITALS: BP 156/72; PULSE 83; RESP 18; TEMP 97.3; O2SAT 98
[2017-03-06] MEDS: NITROGLYCERIN 2% OINT 1 GM PACKET TOPICAL SCH ×2 (06:23→14:00)
[2017-03-06 08:00] VITALS: PULSE 82
[2017-03-06] MEDS ORDERED: FLUMAZENIL 0.5 MG/5 ML VIAL IV PUSH PRN (08:15)
[2017-03-06] MEDS ORDERED: LORazepam 2 MG TAB PO PRN (08:15)
[2017-03-06] MEDS ORDERED: LORazepam 1 MG TAB PO PRN (08:15)
[2017-03-06] MEDS ORDERED: LORazepam 2 MG/ML VIAL IV PUSH PRN ×4 (08:15)
[2017-03-06 08:29] VITALS: BP 162/74; PULSE 78; RESP 18; TEMP 98.1; O2SAT 97
[2017-03-06 08:42] LABS: AUTOMATED NEUTROPHIL # 2.7 TH/MM3 (1.8-7.7); EOSINOPHIL # 0.1 TH/MM3 (0-0.4); HEMATOCRIT 37.6 % (39.0-51.0); MEAN CELL VOLUME 96.7 FL (80.0-100.0); MEAN CORPUSCULAR HEMOGLOBIN 33.5 PG (27.0-34.0); MEAN CORPUSCULAR HGB CONC 34.7 % (32.0-36.0); MONO % 16.5 % (0.0-8.0); NEUT % 57.5 % (16.0-70.0); PLATELET COUNT 63 TH/MM3 (150-450); RED BLOOD COUNT 3.89 MIL/MM3 (4.50-5.90); RED CELL DISTRIBUTION WIDTH 12.8 % (11.6-17.2); WHITE BLOOD COUNT 4.7 TH/MM3 (4.0-11.0)
[2017-03-06 08:49] LABS: HEMO FLAGS AUTO DIFF
[2017-03-06] MEDS ORDERED: SODIUM CHLORIDE 0.9% FLUSH 10 ML FLUSH IV FLUSH SCH (09:00)
[2017-03-06] MEDS ORDERED: BUPRENORPHINE/NALOXONE 8 MG/2 MG SUBLINGUAL TAB SL SCH (09:00)
[2017-03-06] MEDS ORDERED: ASPIRIN 325 MG TAB PO SCH (09:00)
[2017-03-06] MEDS ORDERED: CLOPIDOGREL 75 MG TAB PO SCH (09:00)
[2017-03-06] MEDS ORDERED: METOPROLOL TARTRATE 25 MG TAB PO SCH (09:00)
[2017-03-06] MEDS ORDERED: LISINOPRIL 10 MG TAB PO SCH (09:00)
[2017-03-06] MEDS ORDERED: DOCUSATE SODIUM 50 MG/SENNA 8.6 MG TAB PO SCH (09:00)
[2017-03-06 09:17] LABS: ANION GAP 6 MEQ/L (5-15); AST (GOT) 99 U/L (15-37); BICARBONATE 27.6 MEQ/L (21.0-32.0); BLOOD UREA NITROGEN 9 MG/DL (7-18); CHLORIDE 100 MEQ/L (98-107); GLOMERULAR FILTRATION RATE 143 ML/MIN (>89); POTASSIUM 3.9 MEQ/L (3.5-5.1); SODIUM (NA) 134 MEQ/L (136-145)
[2017-03-06 09:18] LABS: ALT (GPT) 36 U/L (12-78)
[2017-03-06 09:22] LABS: ALKALINE PHOSPHATASE 73 U/L (45-117); TOTAL BILIRUBIN ADULT 1.3 MG/DL (0.2-1.0)
[2017-03-06 09:30] LABS: SCAN/DIFF AUTO DIFF CONFIRMED
[2017-03-06 12:09] VITALS: BP 153/76; PULSE 68; RESP 18; TEMP 98.1; O2SAT 97
[2017-03-06] MEDS ORDERED: ALPR.5 PO (13:17)
--- NOTE | 2017-03-06 13:22 | HHI.DCPOC ---
Discharge Care Plan Diagnosis: (1) Substance abuse (2) Abnormal CT of the abdomen (3) Hypertension Goals to Promote Your Health * To prevent worsening of your condition and complications * To maintain your health at the optimal level Directions to Meet Your Goals Take your medications as prescribed Follow your dietary instruction Follow activity as directed Keep your appointments as scheduled Take your immunizations and boosters as scheduled If your symptoms worsen call your PCP, if no PCP go to Urgent Care Center or Emergency Room Smoking is Dangerous to Your Health. Avoid second hand smoke Call the 24-hour hour crisis hotline for domestic abuse at Pierre Bassett DO Mar 06, 2017 13:22
[2017-03-06] MEDS ORDERED: ATORVASTATIN 40 MG TAB PO SCH (21:00)
--- NOTE | 2017-03-06 23:43 | EKG ---
Date Performed: 03/05/2017 Time Performed: 20:34:54 PTAGE: 51 years EKG: Sinus rhythm POSSIBLE LEFT ATRIAL ENLARGEMENT LEFT ANTERIOR FASCICULAR BLOCK PROBABLE LATERAL MYOCARDIAL INFARCTI ON ABNORMAL ECG PREVIOUS TRACING : 02/08/2017 01.21 Compared to the previous tracing, previously left bundle br anch block DOCTOR: Connor Oliva Interpretating Date/Time 03/06/2017 23:42:00
== END 2017-03-06 16:23 | disposition home or self-care (01) | DRG 313 ==
LOC: NEPE 20:24 → NEDA 22:34 → OBSVTOIN 22:58 → N05A 03-06 00:08
PROVIDERS: ADMIT Hospitalist; ATTEND Hospitalist
DX: R07.9 Chest pain, unspecified (principal); R06.02 Shortness of breath; R16.2 Hepatomegaly with splenomegaly, not elsewhere classified; I10 Essential (primary) hypertension; F14.90 Cocaine use, unspecified, uncomplicated; R59.0 Localized enlarged lymph nodes; F17.210 Nicotine dependence, cigarettes, uncomplicated; F10.10 Alcohol abuse, uncomplicated; I25.10 Atherosclerotic heart disease of native coronary artery without angina pectoris; K59.00 Constipation, unspecified; F41.9 Anxiety disorder, unspecified; E78.00 Pure hypercholesterolemia, unspecified; K21.9 Gastro-esophageal reflux disease without esophagitis; E11.9 Type 2 diabetes mellitus without complications; Z95.5 Presence of coronary angioplasty implant and graft
CPT/HCPCS: 71010; 74177; 80048; 80053; 80074; 80076; 82550; 82552; 82948; 83690; 83880; 84484; 85007; 85025; 85027; 85060; 85379; 85610; 85730; 93005; J2060; Q9967